=== PATIENT | male | born 1975 | race Caucasian/White ===

== ENCOUNTER 2025-09-02 07:39 | Outpatient (CLI) | payer BC ==
[2025-09-02] MEDS ORDERED: Iopamidol 370 76% 100 ML VIAL ONE (11:07)
== END 2025-09-02 07:40 | disposition home or self-care (01) ==
LOC: CT 07:39
PROVIDERS: ATTEND Internal Medicine
DX: K52.9 Noninfective gastroenteritis and colitis, unspecified (principal); R63.4 Abnormal weight loss; N28.1 Cyst of kidney, acquired
CPT/HCPCS: 74177